=== PATIENT | female | born 1935 | race Caucasian/White ===

== ENCOUNTER → 2016-08-30 | Outpatient (CLI) | payer MEDICARE, BC ==
[~2016-08-30] MED LIST: ASPIRIN 32325 MG/TAB PO; CARDIZEM 30MG T30 MG PO; DORZOLAMIDE HYD10 M1 OP; LUMIGAN 2.5 ML2.5 M1 OP; XARELTO20 MG PO
== END ==
LOC: LAB 15:10
DX: N30.00 Acute cystitis without hematuria (principal)

== ENCOUNTER 2017-05-15 04:39 | Emergency (ER) | payer MEDICARE, BC ==
[~2017-05-15] VITALS: Ht 157.5 cm; Wt 112.0 kg
[2017-05-15 06:53] LABS: HEMATOCRIT 41.4 % (37.0-47.0); HEMOGLOBIN 13.2 g/dL (12.5-16.0); MEAN CELL VOLUME 90 fl (78-100); MEAN CORPUSCULAR HEMOGLOBIN 29 pg (27-31); MEAN CORPUSCULAR HGB CONC 32 g/dL (33-37); MEAN PLATELET VOLUME 11.6 fl (7.4-10.4); PLATELET COUNT 154 K/mm3 (130-400); RED BLOOD COUNT 4.61 M/mm3 (4.10-5.30); RED CELL DISTRIBUTION WIDTH 14.1 % (11.5-14.5); WHITE BLOOD COUNT 7.8 K/mm3 (4.8-10.8)
[2017-05-15 07:03] LABS: POTASSIUM 4.1 mmol/L (3.6-5.0)
[2017-05-15 07:06] LABS: BAND 1 % (0-10); LYMPHOCYTE 86 % (20-51); MONOCYTE 9 % (3-10); TROPONIN-I < 0.03 ng/mL (0.00-0.06)
[2017-05-15 07:36] LABS: BUN/CREATININE RATIO 24.6 (6.0-26.0); CALCIUM 9.4 mg/dL (8.4-10.2); TOTAL BILIRUBIN 0.7 mg/dL (0.2-1.3); TOTAL PROTEIN 7.7 g/dL (6.3-8.2)
[2017-05-15 08:12] LABS: URINE WBC 0 /hpf (0-3)
[2017-05-15 08:13] LABS: URINE APPEARANCE HAZY; URINE BILIRUBIN NEGATIVE (NEGATIVE); URINE BLOOD TRACE (NEGATIVE); URINE COLOR YELLOW; URINE GLUCOSE 50 mg/dL mg/dL (NEGATIVE); URINE KETONE NEGATIVE (NEGATIVE); URINE LEUKOCYTE ESTERASE NEGATIVE (NEGATIVE); URINE MUCUS PRESENT (NOT PRESENT); URINE NITRATE NEGATIVE (NEGATIVE); URINE PROTEIN(semi-quant) TRACE mg/dL (NEGATIVE); URINE UROBILINOGEN NORMAL (NORMAL)
[2017-05-15] MEDS ORDERED: VALIUM 5MG T5 MG/TAB PO (12:32)
[2017-05-15] MEDS ORDERED: ZOFRAN ODT8 M1 PO (12:32)
--- NOTE | 2017-05-15 13:59 | NUR ---
Discussed w/ pt and family that as provider did not think she was ill enough to admit to hospital, other options that were available to her such as: Home w/ HH services (which are explained to her in detail, and choice sheet offered); and Respite care in a LTCF and that [facility] had a private rehab room available for a short term respite care pt for the cost of $229.50/day. Pt, son and dtr discuss these options and decide that they would like to go home w/ HH services. Pt and family also given Private Pay Home Assistance hand out for area agencies as well as a [employer] application, and Personal Alarm companies pamphlets. HH will also be notified of pt's need for set up of personal alarm. Pt and family are encouraged to call for this nurse if they need additional information or assistance. Pt and family choose [id number] for HH care and sign choice sheet. Dr Moran is in agreement and signed F2F orders and records are sent to [facility].
[2017-05-15 16:35] VITALS: BP 161/83
== END 2017-05-15 13:25 | disposition home or self-care (01) ==
LOC: ED 04:39
PROVIDERS: Nurse Practitioner Family
DX: H83.01 Labyrinthitis, right ear (principal); I48.91 Unspecified atrial fibrillation; Z79.01 Long term (current) use of anticoagulants; E11.9 Type 2 diabetes mellitus without complications; E78.5 Hyperlipidemia, unspecified; E89.0 Postprocedural hypothyroidism; Z87.891 Personal history of nicotine dependence; H54.40 Blindness, one eye, unspecified eye; Z86.73 Personal history of transient ischemic attack (TIA), and cerebral infarction without residual deficits
CPT/HCPCS: J2405; J3360; J7030

== ENCOUNTER → 2017-11-26 | Outpatient (CLI) | payer MEDICARE, BC ==
[~2017-11-26] MED LIST changes: +VALIUM 5MG T5 MG/TAB PO; +ZOFRAN ODT8 M1 PO
[2017-11-26 11:33] LABS: EOS # 0.1 (0.04-0.40); EOS % 1.7 % (1.0-5.0); HEMATOCRIT 41.8 % (37.0-47.0); HEMOGLOBIN 12.8 g/dL (12.5-16.0); LYMPH# 0.9 (1.50-4.00); MEAN CELL VOLUME 92 fl (78-100); MEAN CORPUSCULAR HEMOGLOBIN 28 pg (27-31); MEAN CORPUSCULAR HGB CONC 31 g/dL (33-37); MONO # 0.4 (0.20-0.80); NEU # 4.4 (1.40-6.50); PLATELET COUNT 186 K/mm3 (130-400); RED BLOOD COUNT 4.56 M/mm3 (4.10-5.30); RED CELL DISTRIBUTION WIDTH 14.7 % (11.5-14.5); WHITE BLOOD COUNT 5.9 K/mm3 (4.8-10.8)
[2017-11-26 11:56] LABS: ALBUMIN 3.8 g/dL (3.5-5.0); BUN/CREATININE RATIO 17.1 (6.0-26.0); CALCIUM 8.7 mg/dL (8.4-10.2); POTASSIUM 4.2 mmol/L (3.6-5.0); TOTAL BILIRUBIN 0.5 mg/dL (0.2-1.3); TOTAL PROTEIN 7.6 g/dL (6.3-8.2)
[2017-11-26 12:40] LABS: URINE APPEARANCE HAZY; URINE BILIRUBIN NEGATIVE (NEGATIVE); URINE BLOOD NEGATIVE (NEGATIVE); URINE COLOR YELLOW; URINE GLUCOSE NEGATIVE (NEGATIVE); URINE KETONE NEGATIVE (NEGATIVE); URINE LEUKOCYTE ESTERASE 1+ (NEGATIVE); URINE NITRATE NEGATIVE (NEGATIVE); URINE PROTEIN(semi-quant) NEGATIVE (NEGATIVE); URINE UROBILINOGEN NORMAL (NORMAL)
[2017-11-26 12:41] LABS: URINE MUCUS PRESENT (NOT PRESENT)
== END ==
LOC: LAB 10:38
PROVIDERS: Internal Medicine Cardiovascular Disease
DX: Z00.00 Encounter for general adult medical examination without abnormal findings (principal); Z13.220 Encounter for screening for lipoid disorders; E11.9 Type 2 diabetes mellitus without complications; I10 Essential (primary) hypertension; N30.00 Acute cystitis without hematuria

== ENCOUNTER → 2017-11-27 | Outpatient (CLI) | payer MEDICARE, BC ==
[2017-11-27 13:01] LABS: PH-URINE 5.5 (5.0 - 8.0); URINE APPEARANCE CLEAR; URINE COLOR YELLOW
[2017-11-27 13:02] LABS: URINE BILIRUBIN NEGATIVE (NEGATIVE); URINE BLOOD NEGATIVE (NEGATIVE); URINE GLUCOSE NEGATIVE (NEGATIVE); URINE KETONE NEGATIVE (NEGATIVE); URINE LEUKOCYTE ESTERASE TRACE (NEGATIVE); URINE NITRATE NEGATIVE (NEGATIVE); URINE PROTEIN(semi-quant) NEGATIVE (NEGATIVE); URINE UROBILINOGEN NORMAL (NORMAL)
== END ==
LOC: LAB 12:52
PROVIDERS: Nurse Practitioner Family
DX: Z87.440 Personal history of urinary (tract) infections (principal)

== ENCOUNTER → 2019-12-28 | Outpatient (CLI) | payer MEDICARE, BC | LOC: RAD 15:45 → VAS 15:46 | DX: I48.91 Unspecified atrial fibrillation (principal); I34.0 Nonrheumatic mitral (valve) insufficiency; I27.20 Pulmonary hypertension, unspecified ==

== ENCOUNTER → 2019-12-28 | Emergency (ER) | payer MEDICARE, BC | LOC: ED 16:41 | DX: R03.0 Elevated blood-pressure reading, without diagnosis of hypertension (principal) ==

== ENCOUNTER → 2020-01-13 | Outpatient (CLI) | payer MEDICARE, BC ==
[2020-01-13 10:41] LABS: EOS # 0.1 (0.04-0.40); EOS % 1.2 % (1.0-5.0); HEMATOCRIT 42.2 % (37.0-47.0); HEMOGLOBIN 13.1 g/dL (12.5-16.0); MEAN CELL VOLUME 90 fl (78-100); MEAN CORPUSCULAR HEMOGLOBIN 28 pg (27-31); MEAN CORPUSCULAR HGB CONC 31 g/dL (33-37); MEAN PLATELET VOLUME 10.8 fl (7.4-10.4); MONO # 0.5 (0.20-0.80); NEU # 4.2 (1.40-6.50); PLATELET COUNT 185 K/mm3 (130-400); RED BLOOD COUNT 4.67 M/mm3 (4.10-5.30); RED CELL DISTRIBUTION WIDTH 14.3 % (11.5-14.5); WHITE BLOOD COUNT 5.7 K/mm3 (4.8-10.8)
[2020-01-13 10:56] LABS: ALBUMIN 4.1 g/dL (3.4-4.8); POTASSIUM 4.5 mmol/L (3.5-5.1)
[2020-01-13 10:57] LABS: CALCIUM 9.4 mg/dL (8.3-10.5)
[2020-01-13 10:59] LABS: TOTAL PROTEIN 8.3 g/dL (6.2-8.1)
[2020-01-13 11:00] LABS: TOTAL BILIRUBIN 0.6 mg/dL (0.2-1.2)
== END ==
LOC: LAB 10:13
DX: Z51.81 Encounter for therapeutic drug level monitoring (principal); Z79.899 Other long term (current) drug therapy

== ENCOUNTER → 2021-02-03 | Outpatient (CLI) | payer MEDICARE, BC ==
[~2021-02-03] MED LIST changes: +FUROSEMIDE40 MG PO; +POTASSIUM CHLO20 ME4 PO
[2021-02-03 15:07] LABS: BASO # 0.02 (0.02-0.10); EOS # 0.12 (0.04-0.40); EOS % 1.7 % (1.0-5.0); HEMATOCRIT 37.5 % (37.0-47.0); HEMOGLOBIN 11.6 g/dL (12.5-16.0); MEAN CELL VOLUME 93 fl (78-100); MEAN CORPUSCULAR HEMOGLOBIN 29 pg (27-31); MEAN CORPUSCULAR HGB CONC 31 g/dL (33-37); MEAN PLATELET VOLUME 10.3 fl (7.4-10.4); PLATELET COUNT 213 K/mm3 (130-400); RED BLOOD COUNT 4.02 M/mm3 (4.10-5.30); WHITE BLOOD COUNT 7.1 K/mm3 (4.8-10.8)
[2021-02-03 15:19] LABS: ALBUMIN 3.9 g/dL (3.4-4.8); POTASSIUM 4.4 mmol/L (3.5-5.1)
[2021-02-03 15:20] LABS: CALCIUM 9.1 mg/dL (8.3-10.5)
[2021-02-03 15:21] LABS: TOTAL PROTEIN 7.6 g/dL (6.2-8.1)
[2021-02-03 15:23] LABS: TOTAL BILIRUBIN 0.5 mg/dL (0.2-1.2)
== END ==
LOC: RAD 14:27 → LAB 14:27
PROVIDERS: Physician Assistant
DX: Z13.29 Encounter for screening for other suspected endocrine disorder (principal); E78.00 Pure hypercholesterolemia, unspecified; E13.42 Other specified diabetes mellitus with diabetic polyneuropathy; M19.012 Primary osteoarthritis, left shoulder; M47.816 Spondylosis without myelopathy or radiculopathy, lumbar region

== ENCOUNTER → 2021-08-08 | Outpatient (CLI) | payer MEDICARE, BC | LOC: RAD 11:42 | DX: S42.302D Unspecified fracture of shaft of humerus, left arm, subsequent encounter for fracture with routine healing (principal); W19.XXXA Unspecified fall, initial encounter ==

== ENCOUNTER → 2021-09-22 | Outpatient (CLI) | payer MEDICARE, BC ==
[~2021-09-22] MED LIST changes: +ADULT ASPIRIN R81 MG PO; +DILTIAZEM 24HR120 M2 PO; +FUROSEMIDE20 MG PO; +POTASSIUM CHLO10 ME6 PO; +VITAMIN C PUR1000 MG PO
== END ==
LOC: RAD 14:54
DX: J18.9 Pneumonia, unspecified organism (principal)

== ENCOUNTER 2021-09-26 09:30 | Emergency (ER) | payer MEDICARE, BC ==
[~2021-09-26] VITALS: Ht 157.5 cm; Wt 104.5 kg
[~2021-09-26 09:30] MED LIST changes: -ADULT ASPIRIN R81 MG PO; -DILTIAZEM 24HR120 M2 PO; -FUROSEMIDE20 MG PO; -POTASSIUM CHLO10 ME6 PO; -VITAMIN C PUR1000 MG PO
[2021-09-26] MEDS ORDERED: FUROSEMIDE20 MG PO (09:41)
[2021-09-26] MEDS ORDERED: POTASSIUM CHLO10 ME6 PO (09:41)
[2021-09-26] MEDS ORDERED: ADULT ASPIRIN R81 MG PO (09:42)
[2021-09-26] MEDS ORDERED: VITAMIN C PUR1000 MG PO (09:42)
[2021-09-26] MEDS ORDERED: DILTIAZEM 24HR120 M2 PO (09:42)
[2021-09-26 10:42] VITALS: BP 163/81
== END 2021-09-26 10:45 | disposition home or self-care (01) ==
LOC: ED 09:30
DX: R04.0 Epistaxis (principal); Z88.1 Allergy status to other antibiotic agents

== ENCOUNTER → 2021-11-07 | Outpatient (CLI) | payer MEDICARE, BC ==
[~2021-11-07] MED LIST changes: +ADULT ASPIRIN R81 MG PO; +DILTIAZEM 24HR120 M2 PO; +FUROSEMIDE20 MG PO; +POTASSIUM CHLO10 ME6 PO; +VITAMIN C PUR1000 MG PO
== END ==
LOC: RAD 14:50
DX: M17.0 Bilateral primary osteoarthritis of knee (principal)

== ENCOUNTER → 2021-11-14 | Outpatient (CLI) | payer MEDICARE, BC | LOC: RAD 18:12 | DX: M17.11 Unilateral primary osteoarthritis, right knee (principal) ==

== ENCOUNTER 2022-08-23 09:29 | Outpatient (RCR) | payer MEDICARE, BC | END 2022-09-23 21:25 | disposition home or self-care (01) | LOC: OPPGERO 09:29 | DX: F43.21 Adjustment disorder with depressed mood (principal); E55.9 Vitamin D deficiency, unspecified; E11.9 Type 2 diabetes mellitus without complications; E78.00 Pure hypercholesterolemia, unspecified; I10 Essential (primary) hypertension ==

== ENCOUNTER → 2023-06-21 | Outpatient (CLI) | payer MEDICARE, BC ==
[2023-06-21 16:45] LABS: HEMATOCRIT 40.6 % (37.0-47.0); HEMOGLOBIN 12.9 g/dL (12.5-16.0); MEAN PLATELET VOLUME 10.5 fl (7.4-10.4); RED BLOOD COUNT 4.35 M/mm3 (4.10-5.30); RED CELL DISTRIBUTION WIDTH 13.2 % (11.5-14.5); WHITE BLOOD COUNT 6.3 K/mm3 (4.8-10.8)
[2023-06-21 16:53] LABS: CALCIUM 9.5 mg/dL (8.3-10.5)
[2023-06-21 17:07] LABS: D-DIMER 0.81 mg/L FEU (0.15-0.50)
== END ==
LOC: LAB 16:16
PROVIDERS: Nurse Practitioner Family
DX: R22.40 Localized swelling, mass and lump, unspecified lower limb (principal)

== ENCOUNTER → 2023-06-26 | Outpatient (CLI) | payer MEDICARE, BC | LOC: RAD 15:19 | DX: M17.12 Unilateral primary osteoarthritis, left knee (principal); M25.462 Effusion, left knee ==

== ENCOUNTER → 2023-11-21 | Outpatient (CLI) | payer MEDICARE, BC | LOC: RAD | DX: M17.11 Unilateral primary osteoarthritis, right knee (principal) ==

== ENCOUNTER → 2024-02-07 | Outpatient (CLI) | payer MEDICARE, BC | LOC: RAD 16:11 | DX: M19.012 Primary osteoarthritis, left shoulder (principal) ==

== ENCOUNTER 2024-02-24 10:13 | Emergency (ER) | payer MEDICARE, BC ==
[~2024-02-24] VITALS: Ht 157.5 cm; Wt 96.4 kg
[2024-02-24] MEDS ORDERED: MELOXICAM15 MG PO (10:43)
[2024-02-24 11:08] LABS: PH-URINE 8.5 (5.0 - 8.0); URINE APPEARANCE CLEAR (CLEAR); URINE BILIRUBIN NEGATIVE (NEGATIVE); URINE BLOOD TRACE-LYSED (NEGATIVE); URINE COLOR YELLOW (YELLOW); URINE GLUCOSE NEGATIVE (NEGATIVE); URINE KETONE NEGATIVE (NEGATIVE); URINE LEUKOCYTE ESTERASE NEGATIVE (NEGATIVE); URINE NITRATE NEGATIVE (NEGATIVE); URINE PROTEIN(semi-quant) TRACE (NEGATIVE)
[2024-02-24 11:09] LABS: URINE MUCUS PRESENT (NOT PRESENT)
[2024-02-24 11:30] LABS: HEMATOCRIT 43.8 % (37.0-47.0); HEMOGLOBIN 13.9 g/dL (12.5-16.0); MEAN CELL VOLUME 94 fl (78-100); MEAN CORPUSCULAR HEMOGLOBIN 30 pg (27-31); MEAN CORPUSCULAR HGB CONC 32 g/dL (33-37); MEAN PLATELET VOLUME 10.4 fl (7.4-10.4); PLATELET COUNT 172 K/mm3 (130-400); RED BLOOD COUNT 4.67 M/mm3 (4.10-5.30); WHITE BLOOD COUNT 7.9 K/mm3 (4.8-10.8)
[2024-02-24 12:02] LABS: LYMPHOCYTE 9 % (20-51); MONOCYTE 6 % (3-10); NEUTROPHILS 84 % (42-75)
[2024-02-24 13:37] VITALS: BP 136/71
== END 2024-02-24 13:45 | disposition home or self-care (01) ==
LOC: ED 10:13
PROVIDERS: Nurse Practitioner Family
DX: M62.81 Muscle weakness (generalized) (principal); R53.83 Other fatigue